=== PATIENT | male | born 1965 | race Caucasian/White ===

== ENCOUNTER → 2017-04-01 | Outpatient (CLI) | payer MEDICARE, BC ==
[~2017-04-01] MED LIST: ALBUTEROL PO; ALLEGRA ALLERG180 MG PO; ALLEGRA PO; ANDROGEL2.5 GM TOP; ASPIRIN PO; ASPIRIN81 M2 PO; ASTELIN137 MCG; ATIVAN PO; ATIVAN2 MG PO; BETAMETHASONE D50 GM TOP; CELEBREX PO; CELEXA PO; CITALOPRAM HBR40 MG PO; CLONAZEPAM2 MG PO; DEPO-TESTOS200 MG/M2 IM; DEPO-TESTOTERO100 MG; DUONEB 2.5-0.5 M3 ML NEB; FLEXERIL10 MG PO; FLONASE16 GM; FOLTANX TABLET1 EACH PO; GLUCOVANCE 2.5/1 TA1 PO; GLYBURIDE-METFO1 TA2 PO; HCTZ PO; HUMALOG100 U/ML SUBQ; HYDROCODON-ACE1 EAC4 PO; HYDROCODON-ACE1 EAC5 PO; HYTRIN PO; HYTRIN5 M1 PO; HYTRIN5 MG PO; IMDUR; K-DUR20 ME1 PO; KCL PO; KLONOPIN PO; LASIX PO; LEVEMIR SUBQ; LIPITOR PO; LISINOPRIL PO; LOPRESSOR100 MG PO; LORTAB 10/500 T1 TAB PO; METFORMIN PO; METOPROLOL SUCC50 MG; NABUMETONE PO; NASAL 02; NASONEX17 GM; NEURONTIN PO; PERCOCET 10/3251 TAB PO; PHENERGAN25 MG PO; PLAVIX PO; PROSCAR5 MG PO; PROTONIX PO; PROZAC40 MG PO; SINGULAIR PO; TEMAZEPAM PO; TOPAMAX PO; TOPIRAMATE100 MG PO; TOPROL XL PO; TRAZODONE PO; TRICOR PO; TRICOR145 MG PO; VITAMIN D1000 UNI1 PO; XOPENEX HFA15 GM INH; ZOCOR PO; [UNRECOGNIZED DRUG - CODE] TOP; [UNRECOGNIZED DRUG - MIXTURE] TP
[2017-04-01 12:46] LABS: HEMATOCRIT 39.4 % (38.0-50.0); HEMOGLOBIN 13.4 gm/dL (13.0-16.0); MEAN CELL VOLUME 87.8 FL (83-96); MEAN CORPUSCULAR HEMOGLOBIN 29.9 PG (28-34); MEAN CORPUSCULAR HGB CONC 34.1 g/dL (30-36); MEAN PLATELET VOLUME 7.8 FL (6.5-11.5); RED BLOOD COUNT 4.48 X10e (3.90-5.60); RED CELL DISTRIBUTION WIDTH 14.2 % (11.0-15.5); WHITE BLOOD COUNT 6.2 X10e3 (4.0-10.5)
[2017-04-01 13:06] LABS: ALBUMIN SERUM 3.8 g/dL (3.5-5.0); BILIRUBIN,TOTAL 0.8 mg/dL (0.2-2.0); BUN/CREATININE RATIO 11.11; CALCIUM SERUM 9.2 mg/dL (8.4-10.2); CREATININE SERUM 0.9 mg/dL (0.6-1.4); GLOM FILT RATE Estimated 99.2 mL/min (>60); POTASSIUM 4.3 mmol/L (3.5-5.1)
[2017-04-01 17:20] LABS: TESTOSTERONE TOTAL 360.54 ng/dL (17-781)
[2017-04-01 17:23] LABS: PROSTATE SPECIFIC AG SCR 0.27 ng/ml (0.0-4.0)
[2017-04-03 15:16] LABS: SEX HORMONE BINDING GLOBULIN 48 nmol/L (10-50)
== END | disposition home or self-care (01) ==
LOC: SLAB 07:45
PROVIDERS: Internal Medicine Endocrinology, Diabetes & Metabolism
DX: E29.1 Testicular hypofunction (principal); E23.6 Other disorders of pituitary gland; E11.9 Type 2 diabetes mellitus without complications; I10 Essential (primary) hypertension; E78.4 Other hyperlipidemia; E66.9 Obesity, unspecified
CPT/HCPCS: 36415; 80053; 82306; 83036; 84270; 84403; 85027; G0103

== ENCOUNTER → 2017-04-14 | Day surgery (SDC) | payer MEDICARE, BC ==
--- NOTE | ~2017-04-14 | OR ---
Unit #: [id number] #: [id number] Patient: MARCK CALL [id number] [address] [address] [id number] O MR#: [id number] NAME: MARCK CALL ROOM: Date of Procedure: 04/14/2017 Admission Date: 04/14/2017 Surgeon: Harsh Barraza M.D. : 1965 Attending Physician: Harsh Barraza M.D. Primary Care Physician: Chely Jaimse M.D. OPERATIVE REPORT JOB NOTE: CC: [facility] PREOPERATIVE DIAGNOSES 1. Back pain, radiculopathy, degenerative disk disease, lumbar spinal stenosis, degenerative facet disease. 2. Neck pain, cervical radiculopathy, degenerative cervical disk disease. PROCEDURES PERFORMED 1. Lumbar epidural steroid injection with fluoroscopic guidance for needle localization. 2. Cervical epidural steroid injection with fluoroscopic guidance for needle localization. INDICATIONS FOR PROCEDURE The patient is a 51-year-old male with previously mentioned diagnosis. He is managed chronically with medical management and rehab. When the pain flares, he has done well with epidural steroids. Last lumbar epidural steroids were done which is in 05/2014 and 07/2014. Last single cervical epidural injection was done in 2012. He had resurgence of symptoms in both areas. Based on his history, pathology, symptomatology, treatment options, and response to treatment, plan is to repeat an epidural steroid injection of the lumbar and cervical area today. DESCRIPTION OF PROCEDURE Procedure #1: The patient was placed in a seated position. Standard monitors were applied. Sterile prep and drape of the lumbar area was performed. The skin then at the L4 level was localized with 1% lidocaine. An 18-gauge Hustead needle was then advanced via loss of resistance technique and fluoroscopic guidance in toward the epidural space. After confirming proper needle tip positioning with fluoroscopy and radiographic contrast, a dose of 80 mg of Depo-Medrol and 4 mL of 0.125% bupivacaine were deposited. The patient tolerated this part of procedure well. Procedure #2: Cervical epidural steroid injection with fluoroscopic guidance. A second kit was used to sterilely prep and drape the patient's cervical spine. The skin then at the C5-C6 level was localized with 1% lidocaine. An 18-gauge Hustead needle was then advanced via hanging drop technique and fluoroscopic guidance in toward the epidural space. After confirming proper positioning with fluoroscopy and radiographic contrast, 80 mg of Depo-Medrol and 2 mL of 0.25% bupivacaine were deposited. The patient tolerated the procedure otherwise well and was discharged to the recovery room in stable condition. Unit #: [id number] #: [id number] Patient: ONEYDAMARCK Janeth Dictated by... Matthias Ortiz/jorgito TD: 04/14/2017 11:39 JOB #: [id number] OPERATIVE REPORT Page 1 of 1 X Harsh Barraza MD X PROCEDURE OPERATIVE NOTE
== END | disposition home or self-care (01) ==
LOC: CCSC 07:28
DX: M51.16 Intervertebral disc disorders with radiculopathy, lumbar region (principal); M48.06 Spinal stenosis, lumbar region; M53.86 Other specified dorsopathies, lumbar region; M50.10 Cervical disc disorder with radiculopathy, unspecified cervical region; E66.01 Morbid (severe) obesity due to excess calories; I25.10 Atherosclerotic heart disease of native coronary artery without angina pectoris; K21.9 Gastro-esophageal reflux disease without esophagitis; J44.9 Chronic obstructive pulmonary disease, unspecified; N40.0 Benign prostatic hyperplasia without lower urinary tract symptoms; E11.9 Type 2 diabetes mellitus without complications; I10 Essential (primary) hypertension; Z79.02 Long term (current) use of antithrombotics/antiplatelets; Z79.899 Other long term (current) drug therapy; Z79.84 Long term (current) use of oral hypoglycemic drugs; Z79.51 Long term (current) use of inhaled steroids
CPT/HCPCS: J1040; J2250

== ENCOUNTER → 2017-04-17 | Outpatient (CLI) | payer MEDICARE, BC | END | disposition home or self-care (01) | LOC: SLABONLY 08:27 | DX: E29.1 Testicular hypofunction (principal); E23.6 Other disorders of pituitary gland; E11.9 Type 2 diabetes mellitus without complications | CPT/HCPCS: 36415; 84403 ==

== ENCOUNTER → 2017-05-05 | Day surgery (SDC) | payer MEDICARE, BC ==
--- NOTE | ~2017-05-05 | OR ---
Unit #: [id number] #: [id number] Patient: MARCK CALL [id number] [address] [place], [place] [address] [id number] O MR#: [id number] NAME: MARCK CALL ROOM: Date of Procedure: 05/05/2017 Admission Date: 05/05/2017 Surgeon: Harsh Barraza M.D. : 1965 Attending Physician: Harsh Barraza M.D. Referring Physician: Harsh Barraza M.D. Primary Care Physician: Chely Jaimes M.D. OPERATIVE REPORT PREOPERATIVE DIAGNOSES Back pain, radiculopathy, spinal stenosis, degenerative lumbar disk disease. POSTOPERATIVE DIAGNOSES Back pain, radiculopathy, spinal stenosis, degenerative lumbar disk disease. PROCEDURE PERFORMED Lumbar epidural steroid injection with fluoroscopic guidance for needle localization. INDICATIONS FOR PROCEDURE The patient is a 51-year-old male, who had return of back and right lower extremity radicular pain. He has known multilevel degenerative disk, facet, and stenotic disease especially at L4-L5 and L5-S1. He was treated last with epidural steroid injections 3 years ago. He had resurgence of the pain. Repeat injection done 3 weeks ago resulted in greater than 50% settling of that back and leg pain. He also had a single cervical epidural steroid injection to that point, which was brought that pain back down to its baseline. Based on a good response, we are going to hold any further cervical injections at this point. We are going to proceed with a second lumbar injection. It last go around and he required all 3 injections as the pain gets down to its baseline, we will hold on any further injections after that. DESCRIPTION OF PROCEDURE The patient was placed in the seated position. Standard monitors were applied. Sterile prep and drape of the lumbar area were performed. The skin then at the L5 level was localized with 1% lidocaine. An 18-gauge Deanslist needle was then advanced via loss of resistance technique and fluoroscopic guidance in toward the epidural space. After confirming proper positioning with fluoroscopy and radiographic contrast, 80 mg of Depo-Medrol and 4 mL of 0.125% bupivacaine were deposited. The patient tolerated the procedure otherwise well and was discharged to the recovery room in stable condition. Dictated by... Harsh Barraza M.D. [facility] [place] Unit #: [id number] #: [id number] Patient: MARCK CALL TD: 05/05/2017 13:00 JOB #: [id number] CC: [facility] Center OPERATIVE REPORT Page 1 of 1 X Harsh Barraza MD X PROCEDURE OPERATIVE NOTE
== END | disposition home or self-care (01) ==
LOC: CCSC 07:39
DX: M51.16 Intervertebral disc disorders with radiculopathy, lumbar region (principal); M48.06 Spinal stenosis, lumbar region; M48.07 Spinal stenosis, lumbosacral region; I25.10 Atherosclerotic heart disease of native coronary artery without angina pectoris; E11.9 Type 2 diabetes mellitus without complications; I10 Essential (primary) hypertension; E66.01 Morbid (severe) obesity due to excess calories; J44.9 Chronic obstructive pulmonary disease, unspecified; M19.90 Unspecified osteoarthritis, unspecified site; K21.9 Gastro-esophageal reflux disease without esophagitis; Z88.8 Allergy status to other drugs, medicaments and biological substances; Z79.02 Long term (current) use of antithrombotics/antiplatelets; Z79.82 Long term (current) use of aspirin; Z79.899 Other long term (current) drug therapy; Z79.84 Long term (current) use of oral hypoglycemic drugs; Z98.1 Arthrodesis status
CPT/HCPCS: J1040; J2250

== ENCOUNTER → 2017-05-19 | Day surgery (SDC) | payer MEDICARE, BC ==
--- NOTE | ~2017-05-19 | OR ---
Unit #: [id number] #: [id number] Patient: MARCK CALL [id number] [address] [address] [id number] O MR#: [id number] NAME: MARCK CALL ROOM: Date of Procedure: 05/19/2017 Admission Date: 05/19/2017 Surgeon: Harsh Barraza M.D. : 1965 Attending Physician: Harsh Barraza M.D. Primary Care Physician: Chely Jaimes M.D. OPERATIVE REPORT PREOPERATIVE DIAGNOSES Back pain, radiculopathy, degenerative lumbar disk disease, lumbar spinal stenosis. POSTOPERATIVE DIAGNOSES Back pain, radiculopathy, degenerative lumbar disk disease, lumbar spinal stenosis. PROCEDURE PERFORMED Lumbar epidural steroid injection with fluoroscopic guidance for needle localization. INDICATIONS FOR PROCEDURE The patient is 51-year-old male, who presented initially with return of back, right lower extremity pain, neck and upper extremity pain as well. This is due to nonsurgical degenerative disk and spine disease. He is treated generally medically. He was last treated with epidural steroids in his neck 4 years ago, in his back 3 years ago. Based on history, pathology, and symptomatology, decision was made to repeat the injections. Single injection done a bit over a month ago that was controlled neck pain. He has had 2 lumbar epidural steroid injections done over the last 5 weeks or so. They have given additive improvement. He is not back down to the prior level what was able to achieve with a series of injections in the past, so we are going to proceed with what should be a final lumbar injection today. DESCRIPTION OF PROCEDURE The patient was placed in a seated position. Standard monitors were applied. Sterile prep and drape of the lumbar area were performed. The skin then at the L4 level was localized with 1% lidocaine. An 18-gauge Genetix Fusion needle was then advanced via loss of resistance technique and fluoroscopic guidance in toward the epidural space. After confirming proper positioning with fluoroscopy and radiographic contrast, 80 mg of Depo-Medrol and 6 mL of 0.25% bupivacaine were deposited. The patient tolerated the procedure otherwise well and was discharged to the recovery room in stable condition. Dictated by... Harsh Barraza M.D. Unit #: [id number] #: [id number] Patient: MARCK CALL Janeth WEISS/jorgito TD: 05/19/2017 16:01 JOB #: [id number] OPERATIVE REPORT Page 1 of 1 X Harsh Barraza MD X PROCEDURE OPERATIVE NOTE
== END | disposition home or self-care (01) ==
LOC: CCSC 07:38
DX: M51.16 Intervertebral disc disorders with radiculopathy, lumbar region (principal); M48.06 Spinal stenosis, lumbar region; I25.10 Atherosclerotic heart disease of native coronary artery without angina pectoris; E11.9 Type 2 diabetes mellitus without complications; I10 Essential (primary) hypertension; M19.90 Unspecified osteoarthritis, unspecified site; K21.9 Gastro-esophageal reflux disease without esophagitis; E66.01 Morbid (severe) obesity due to excess calories; J44.9 Chronic obstructive pulmonary disease, unspecified; Z88.8 Allergy status to other drugs, medicaments and biological substances; Z79.02 Long term (current) use of antithrombotics/antiplatelets; Z79.82 Long term (current) use of aspirin; Z79.899 Other long term (current) drug therapy
CPT/HCPCS: J1040; J2250